=== PATIENT | male | born 1995 | race Caucasian/White ===

== ENCOUNTER 2020-05-08 16:06 | Emergency (ER) | payer OTHER ==
[~2020-05-08] VITALS: Ht 170.2 cm; Wt 54.4 kg
[~2020-05-08 16:06] MED LIST: AMOX1TAB5 PO
== END 2020-05-08 18:22 | disposition home or self-care (01) ==
LOC: ER 16:06
DX: J02.8 Acute pharyngitis due to other specified organisms (principal); H66.93 Otitis media, unspecified, bilateral; Z20.822 Contact with and (suspected) exposure to COVID-19

== ENCOUNTER 2021-06-08 14:58 | Emergency (ER) | payer OTHER ==
[~2021-06-08] VITALS: Ht 170.2 cm; Wt 54.4 kg
== END 2021-06-08 18:23 | disposition home or self-care (01) ==
LOC: ER 14:58
DX: A92.8 Other specified mosquito-borne viral fevers (principal); Z72.0 Tobacco use

== ENCOUNTER 2022-06-05 20:28 | Emergency (ER) | payer OTHER ==
[~2022-06-05] VITALS: Ht 172.7 cm; Wt 53.5 kg
== END 2022-06-06 00:38 | disposition home or self-care (01) ==
LOC: ER 20:28
DX: T40.715A Adverse effect of cannabis, initial encounter (principal); Y92.9 Unspecified place or not applicable

== ENCOUNTER 2023-01-09 19:57 | Emergency (ER) | payer OTHER ==
[~2023-01-09] VITALS: Ht 170.2 cm; Wt 53.5 kg
== END 2023-01-09 22:26 | disposition home or self-care (01) ==
LOC: ER 19:57
DX: S05.11XA Contusion of eyeball and orbital tissues, right eye, initial encounter (principal); Y04.8XXA Assault by other bodily force, initial encounter; Y93.9 Activity, unspecified; Y92.9 Unspecified place or not applicable; Y99.9 Unspecified external cause status